=== PATIENT | female | born 1970 | race Caucasian/White ===

== ENCOUNTER 2017-11-20 19:39 | Emergency (ER) | payer BC ==
[~2017-11-20] VITALS: Ht 175.3 cm; Wt 95.3 kg
[2017-11-20] MEDS ORDERED: MORPHINE SULFATE 2 MG/ML SYR IV STA (19:57)
[2017-11-20] MEDS ORDERED: PANTOPRAZOLE 40 MG 10ML VIAL IV STA (19:57)
[2017-11-20] MEDS ORDERED: SODIUM CHLORIDE 0.9% 1000ML 1,000 ML IV STA (19:57)
[2017-11-20] MEDS ORDERED: ONDANSETRON HCL INJ 2 MG/ML VIAL IV STA (19:57)
--- NOTE | 2017-11-20 22:21 | Diagnostic Imaging Report ---
EXAM: CT ABDOMEN AND PELVIS WITH IV CONTRAST INDICATION: Abdominal pain COMPARISON: None TECHNIQUE: The abdomen and pelvis were scanned using a multidetector helical scanner. Coronal and sagittal reformations were obtained. Dose modulation, iterative reconstruction, and/or weight based adjustment of the mA/kV was utilized to reduce the radiation dose to as low as reasonably achievable. Routine protocol performed. IV Contrast: 100 cc Isovue-300 Oral Contrast: None CTDIvol has been reviewed. It is below the limits set by the Radiation Protocol Committee (RPC). FINDINGS: LOWER THORAX: No consolidations LIVER: No masses BILIARY: The gallbladder is contracted. SPLEEN: No masses PANCREAS: No masses ADRENALS: No nodules KIDNEYS: No enhancing masses. No hydronephrosis. GI TRACT: No wall thickening or obstruction. Incidental duodenal diverticulum. The appendix is not visualized. VESSELS: Mild atherosclerotic changes of the abdominal aorta without aneurysm. PERITONEUM/RETROPERITONEUM: No free air or fluid LYMPH NODES: No lymphadenopathy REPRODUCTIVE ORGANS: Normal BLADDER: Normal SOFT TISSUES: Normal BONES: No suspicious bone lesions. Advanced degenerative changes of the L5/S1. IMPRESSION: Normal CT of the abdomen and pelvis. Signed by: Dr. Elsa Moy M.D. on 11/20/2017 10:18 PM
--- NOTE | 2017-11-20 22:36 | Diagnostic Imaging Report ---
Exam: PA and lateral view of the chest Indication: Shortness of breath, chest pain Comparison: None Findings: No consolidations, pleural effusions or pneumothorax. Normal appearance of the cardiomediastinal silhouette and bones. Impression: Normal chest x-ray. Signed by: Dr. Elsa Moy M.D. on 11/20/2017 10:32 PM
== END 2017-11-20 22:55 | disposition home or self-care (01) ==
LOC: FSED 19:39
DX: R10.13 Epigastric pain (principal); R11.0 Nausea; I10 Essential (primary) hypertension; F32.9 Major depressive disorder, single episode, unspecified
CPT/HCPCS: 71046; 74177; 93005; 99283; J2270; J2405; J7030